=== PATIENT | female | born 1950 | race Caucasian/White ===

== ENCOUNTER → 2021-12-24 14:44 | Outpatient (BNVA) | payer MEDICARE, BC, SELFPAY | PROVIDERS: PCP Internal Medicine; Visit Provider Surgery Vascular Surgery | DX: I83.11 Varicose veins of right lower extremity with inflammation (principal) | CPT/HCPCS: 99212 ==

== ENCOUNTER 2022-02-04 10:31 | Outpatient (REF) | payer MEDICARE, BC, SELFPAY ==
--- NOTE | ~2022-02-04 | US_ITS ---
EXAMINATION: BILATERAL LOWER EXTREMITY VENOUS ULTRASOUND (REFLUX EXAM) CLINICAL INDICATION: Right lower extremity varicose veins. COMPARISON: None. TECHNIQUE: Color flow triplex imaging and compression Doppler was performed to evaluate both the deep and the superficial systems bilaterally. To evaluate the superficial system, the examination was performed in the upright position. Color-flow Doppler ultrasound and compression ultrasound were utilized. In addition, maneuvers were utilized to demonstrate reflux. FINDINGS: SUPERFICIAL ULTRASOUND WITH DOPPLER OF RIGHT LOWER EXTREMITY GREAT SAPHENOUS VEIN: Saphenofemoral junction: 4 mm Max diameter: 4 mm Min diameter: 2 mm Reflux: No evidence of reflux. DUPLICATED MEDIAL GREAT SAPHENOUS VEIN: Max Diameter: None Imaged Reflux: NA DUPLICATED LATERAL GREAT SAPHENOUS VEIN: Diameter: None Imaged Reflux: NA SMALL SAPHENOUS VEIN: Proximal Calf: 2 mm Distal Calf: 2 mm Reflux: No evidence of reflux. VEIN OF GIACOMINI: None Imaged. PERFORATORS: Location: Mid thigh measuring 3 mm. Reflux: None. VARICOSITIES: Location: None Imaged. Reflux: NA DEEP VENOUS ULTRASOUND OF THE RIGHT LOWER EXTREMITY: Common Femoral Vein: Compressible, normal respiratory variation and augmented flow. Femoral vein: Compressible, normal color flow and augmentation. Popliteal Vein: Compressible, normal augmentation. Deep Reflux: There is no evidence of reflux in the deep system in either the common femoral vein or the popliteal vein. Melvin's Cyst: There is no evidence of a Melvin's cyst. SUPERFICIAL ULTRASOUND WITH DOPPLER OF LEFT LOWER EXTREMITY GREAT SAPHENOUS VEIN: Saphenofemoral junction: 7 mm Max diameter: 7 mm Min diameter: 2 mm Reflux: There is reflux at the saphenofemoral junction and proximal thigh up to 1.6 seconds. DUPLICATED MEDIAL GREAT SAPHENOUS VEIN: Max Diameter: None Imaged. Reflux: NA DUPLICATED LATERAL GREAT SAPHENOUS VEIN: Diameter: 4 mm at the saphenofemoral junction. Reflux: No evidence of reflux. SMALL SAPHENOUS VEIN: Proximal Calf: 2 mm Distal Calf: 2 mm Reflux: There is greater than 3 seconds of reflux within the proximal calf. VEIN OF GIACOMINI: None Imaged. PERFORATORS: Location: Mid thigh and proximal calf measuring 2 mm each. Reflux: None. VARICOSITIES: Location: Distal calf measuring 2 mm. Reflux: None. DEEP VENOUS ULTRASOUND OF THE LEFT LOWER EXTREMITY: Common Femoral Vein: Compressible, normal respiratory variation and augmented flow. Femoral vein: Compressible, normal color flow and augmentation. Popliteal Vein: Compressible, normal augmentation. Deep Reflux: There is no evidence of reflux in the deep system in either the common femoral vein or the popliteal vein. Melvin's Cyst: There is no evidence of a Melvin's cyst. US/US venous duplex LE BI IMPRESSION: 1. No evidence of right great saphenous venous insufficiency. 2. Left great saphenous venous insufficiency beginning at the junction/proximal thigh. 3. Left small saphenous venous insufficiency beginning at the proximal calf. 4. No evidence of DVT or deep venous insufficiency.
== END 2022-02-04 10:32 | disposition home or self-care (01) ==
LOC: HO.US 10:31
PROVIDERS: PCP Internal Medicine; Visit Provider Surgery Vascular Surgery
DX: I83.11 Varicose veins of right lower extremity with inflammation (principal)
CPT/HCPCS: 93970

== ENCOUNTER → 2022-02-11 12:53 | Outpatient (BNVA) | payer MEDICARE, BC, SELFPAY | PROVIDERS: PCP Internal Medicine; Visit Provider Surgery Vascular Surgery | DX: I83.11 Varicose veins of right lower extremity with inflammation (principal) | CPT/HCPCS: 99212 ==

== ENCOUNTER 2022-02-26 14:22 | Outpatient (REF) | payer MEDICARE, BC, SELFPAY ==
--- NOTE | ~2022-02-26 | US_ITS ---
EXAMINATION: US EXTRACRANIAL CAROTID DUPLEX, BILATERAL CLINICAL INFORMATION: Bilateral carotid bruit COMPARISON: None TECHNIQUE: Real-time ultrasound and Doppler techniques (integrating B-mode 2-D vascular images, Doppler spectral analysis and color-flow Doppler imaging) were utilized to interrogate the extracranial carotid arteries, the vertebral arteries and proximal subclavian arteries bilaterally. The degree of stenosis is determined by criteria similar to NASCET. FINDINGS: Right Side: 1. There is mild atherosclerotic plaque seen in the bifurcation/proximal ICA region. 2. The common carotid artery PSV proximally is 96 cm/s and distally 63 cm/s. 3. The proximal internal carotid artery velocities are 58 cm/s systolic and 16 cm/s diastolic. 4. The proximal external carotid artery PSV is 96 cm/s. 5. The vertebral artery shows antegrade flow. 6. The subclavian artery waveforms are normal. Left Side: 1. There is mild atherosclerotic plaque seen in the bifurcation/proximal ICA region. 2. The common carotid artery PSV proximally is 77 cm/s and distally 98 cm/s. 3. The proximal internal carotid artery velocities are 95 cm/s systolic and 15 cm/s diastolic. 4. The proximal external carotid artery PSV is 93 cm/s. 5. The vertebral artery shows antegrade flow. 6. The subclavian artery waveforms are normal. US/US carotid duplex BI IMPRESSION: 1. RIGHT: Minimal, non-hemodynamically significant stenosis of the proximal right internal carotid artery corresponding to a 0-49% stenosis by velocity criteria. 2. LEFT: Minimal, non-hemodynamically significant stenosis of the proximal left internal carotid artery corresponding to a 0-49% stenosis by velocity criteria.
== END 2022-02-26 14:23 | disposition home or self-care (01) ==
LOC: HO.US 14:22
PROVIDERS: PCP Internal Medicine; Visit Provider Internal Medicine
DX: R09.89 Other specified symptoms and signs involving the circulatory and respiratory systems (principal)
CPT/HCPCS: 93880

== ENCOUNTER 2022-03-26 15:00 | Outpatient (RCR) | payer MEDICARE, BC, SELFPAY ==
[2022-03-21 08:04] VITALS: BP 154/82; PULSE 74
--- NOTE | 2022-03-21 10:20 | MHC.PT.EP ---
[facility] [place] Office [place] Office [place] Office [address] Jay Dhillon [address] [phone] F: [phone] F: [phone] F: [phone] F: [phone] Physical Therapy Plan of Care Date of Evaluation: Date of Surgery: Diagnosis: neck pain Assessment: 71 y/o F referred to PT with neck pain. She sustained a fall 02/13/22 resulting in open laceration back of head and LOC. She does not know why she fell, but states she might have tripped over a stair in her house. She remembers waking up on the kitchen floor maybe 5-10minutes after falling backwards and had her daughter call 911. She was taken to [facility] by ambulance. She had cervical x-rays and CT scan of brain and head - per patient all imaging was normal, nothing broken. States she had a concussion and it was recommended to rest, avoid television, and overstimulation by MD. Her concussion sx included blurry vision and dizziness, which she states lasted 7-10 days and have now resolved. She had mery removed a few weeks ago. Denies nausea, vomiting, MOHAN, and dizziness/vision has resolved. Now she reports residual neck pain and feels limited with rotating neck when driving, looking up after being on the computer, changing positions in bed. She later mentions dizziness with looking down. Examination shows decreased cervical AROM, decreased shoulder/scapular strength, (+) smooth pursuits resulting in dizziness, (+) saccades, ?VOR (neck pain and guarded), (-) VBI/alar ligament/sharp cuauhtemoc/transverse ligament, impiared balance with eyes closed conditions with posterior COM and LOB, increased tissue tension and pain. S/s consistent with neck pain associated with whiplash and concussion. Recommend PT 2x/week for 8 weeks to address impairments, implement HEP, and optimize functional mobility. POC to include cervical/scapular STM/MFR, shoulder strengthening, facet joint mobilization, concussion training to include saccades/smooth pursuit/ VOR/balance training, posture and modalities as needed. Frequency and Duration: The patient will be seen 2x/week for 8 weeks Short Term Goals: 4 weeks 1 I with HEP 2 Pt will have negative smooth pursuit tests with no dizziness 3. Pt will improve cervical rotation by 10 degrees to faciliate driving Prison Goals: 8 weeks 1. I with HEP and self management of sx 2. 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 Pt will improve cervical AROM by 10 degrees with pain < 3/10 to faciliate functional movement Treatment Plan: Modalities to reduce pain, spasms and effusion. Manual therapy to restore motion and function. Therapeutic exercise to improve strength and flexibility. Neuromuscular re-education for posture and balance. Therapeutic activities to return to functional activities of daily living. Electronically signed by: Ramona Lozoya PT Please sign and return to therapist. Thank you for your referral.
--- NOTE | 2022-05-09 07:10 | MHC.PT.DC ---
[facility] [place] Office [place] Office [place] Office [address] Jay Dhillon [address] [phone] F: [phone] F: [phone] F: [phone] F: [phone] Physical Therapy Discharge Report Diagnosis: neck pain Date of Surgery: Date of Evaluation: 03/21/22 Date of Discharge: 05/09/22 Treatments to Date: 2 Cancellations to Date: 0 No Shows to Date: 0 Discharge Status: Patient Elected to Stop Recommend MD Follow-up Discharge Summary: Pt called to put herself on hold following increased dizziness. She also f/u with her neurologist who also placed her on hold. Pt then did not f/u with further visits after 30-day hold and will d/c chart at this time. Electronically signed by: Ramona Lozoya PT Please sign and return to therapist. Thank you for your referral.
== END 2022-05-09 07:11 | disposition home or self-care (01) ==
LOC: HO.PTCHIC 15:00
PROVIDERS: PCP Internal Medicine; Visit Provider Internal Medicine
DX: M54.2 Cervicalgia (principal)
CPT/HCPCS: 97110; 97112; 97140; 97162

== ENCOUNTER 2022-07-14 08:21 | Outpatient (REF) | payer MEDICARE, BC, SELFPAY ==
[2022-07-14 11:29] LABS: MANUAL DIFF FLAG NO
[2022-07-14 11:44] LABS: Basophils Percent Auto 0.3 % (0-2); Eosinophils Absolute Auto 0.1 X10*3/uL (0.0-0.4); Eosinophils Percent Auto 1.3 % (0-4); Hematocrit 39.7 % (37.0-47.0); Hemoglobin 12.9 g/dl (12.0-16.0); Imm Gran Abs Auto 0.02 X10*3/uL (0.00-0.03); Imm Gran Pct Auto 0.3 % (0.0-0.4); Lymphocytes Absolute Auto 1.9 X10*3/uL (1.2-4.9); Lymphocytes Percent Auto 26.2 % (20-40); Mean Corpuscular HGB Conc 32.5 g/dl (31.0-35.0); Mean Corpuscular Hemoglobin 28.9 pg (27.0-33.0); Mean Corpuscular Volume 88.8 fL (80.0-98.0); Mean Platelet Volume 10.4 fL (9.4-12.3); Monocytes Absolute Auto 0.6 X10*3/uL (0.1-1.2); Monocytes Percent Auto 7.4 % (2-11); Neutrophils Absolute Auto 4.8 x10*3/uL (2.0-8.3); Neutrophils Percent Auto 64.5 % (45-73); Platelet Count 229 X10*3/uL (160-400); Red Blood Count 4.47 X10*6/uL (4.20-5.50); Red Cell Distribution Width 13.4 % (11.0-16.0); White Blood Count 7.4 X10*3/uL (4.8-10.8)
[2022-07-14 11:50] LABS: Appearance Urine Hazy; Color Urine Yellow; Glucose Urine UA Negative (Negative); Leukocyte Esterase Urine Negative (Negative); Nitrite Urine Positive (Negative); Specific Gravity - Urine 1.015 (1.005-1.025); UMIC TRIGGER UACC YES; Urine Blood Negative (Negative); Urine Ketones Negative (Negative); Urine Protein Negative (Neg-Trace)
[2022-07-14 12:02] LABS: Bacteria Urine 4+ (None Seen); UACC Culture Trigger YES; WBC Urine 0-5 /HPF (0-5)
[2022-07-14 12:03] LABS: Hyaline Casts Urine 0-2 /LPF (0-2); RBC Urine 0-2 /HPF (0-2)
[2022-07-14 12:30] LABS: Alanine Aminotransferase 17 U/L (0-31); Albumin Level 4.3 g/dL (3.5-5.0); Alkaline Phosphatase 86 U/L (39-117); Anion Gap 15 (12-20); Aspartate Amino Transferase 15 U/L (5-31); Bilirubin Total 0.3 mg/dL (0.0-1.0); Blood Urea Nitrogen 18 mg/dL (9-16); C Reactive Protein 0.14 mg/dL (< or = 0.50); Calcium 9.3 mg/dL (8.4-10.2); Carbon Dioxide 26 mmol/L (22-29); Chloride 103 mmol/L (96-108); Cholesterol 168 mg/dL; Estimated Glomerular Filt Rate > 60; Glucose Fasting 115 mg/dL (60-99); HDL Cholesterol 42 mg/dL; LDL Cholesterol Calculated 86 mg/dl; Sodium 140 mmol/L (135-145); Total Protein 6.8 g/dL (6.5-8.0); Triglycerides 204 mg/dL
[2022-07-14 12:47] LABS: Creatinine Urine 98.72 mg/dL; Microalbum/Creatinine Ratio Ur 11.1 ug/mg cr
== END 2022-07-14 08:22 | disposition home or self-care (01) ==
LOC: HO.HMGCLDS 08:21
PROVIDERS: PCP Internal Medicine; Visit Provider Internal Medicine
DX: E11.9 Type 2 diabetes mellitus without complications (principal); E78.5 Hyperlipidemia, unspecified; I10 Essential (primary) hypertension; R30.0 Dysuria
CPT/HCPCS: 36415; 80053; 80061; 81001; 82043; 85025; 86140; 87086; 87088; 87186

== ENCOUNTER → 2022-07-15 09:58 | Outpatient (BNVA) | payer MEDICARE, BC, SELFPAY | PROVIDERS: PCP Internal Medicine; Visit Provider Dietitian, Registered | DX: E11.9 Type 2 diabetes mellitus without complications (principal) | CPT/HCPCS: 97802 ==

== ENCOUNTER 2022-07-23 09:21 | Outpatient (REF) | payer MEDICARE, BC, SELFPAY ==
--- NOTE | ~2022-07-23 | MR_ITS ---
MR BRAIN WITHOUT AND WITH CONTRAST CLINICAL INFORMATION: History of meningioma with 3 weeks of double vision. COMPARISON: Brain MRI 09/05/2021. TECHNIQUE: Multiplanar, multisequence MRI of the brain was obtained before and after the intravenous administration of 9 mL of Gadavist. FINDINGS: There is a stable appearing densely calcified meningioma at the high right convexity that continues to measure up to 1.8 cm in size. There is no adjacent parenchymal edema. There is mild chronic microangiopathy. There is no hydrocephalus, extra-axial surface collection, or herniation. The major flow voids at the skull base are preserved. There is no acute infarct on diffusion-weighted imaging. There is no intracranial hemorrhage on the gradient recalled echo acquisition. The midline structures are normal. The cerebellar tonsils are normally positioned. The cerebellum and brainstem are normal. The craniocervical junction is normal. Osseous marrow signal intensity is homogenous. The visualized soft tissues are unremarkable. MR/MR head/brain wo/w con IMPRESSION: - There is a stable appearing densely calcified meningioma at the high right convexity that continues to measure up to 1.8 cm in size. There is no adjacent parenchymal edema. No additional pathologic enhancement intracranially. - No acute infarcts. There is mild chronic microangiopathy.
== END 2022-07-23 09:22 | disposition home or self-care (01) ==
LOC: HO.MRI 09:21
PROVIDERS: Visit Provider Internal Medicine
DX: R29.818 Other symptoms and signs involving the nervous system (principal); D32.9 Benign neoplasm of meninges, unspecified
CPT/HCPCS: 70553; A9585

== ENCOUNTER 2023-01-29 08:49 | Outpatient (REF) | payer MEDICARE, BC, SELFPAY ==
[2023-01-29 15:29] LABS: Influenza A PCR NEGATIVE (Negative); Influenza B PCR NEGATIVE (Negative); Resp Syncy Virus RNA Qual PCR NEGATIVE (Negative); SARS COV2 PCR INHOUSE NEGATIVE (Negative)
== END 2023-01-29 08:50 | disposition home or self-care (01) ==
LOC: HO.LAB 08:49
PROVIDERS: Visit Provider Nurse Practitioner Family
DX: Z20.822 Contact with and (suspected) exposure to COVID-19 (principal); R09.89 Other specified symptoms and signs involving the circulatory and respiratory systems
CPT/HCPCS: 0241U

== ENCOUNTER 2023-02-03 10:28 | Outpatient (REF) | payer MEDICARE, BC, SELFPAY ==
[2023-02-03 11:14] LABS: MANUAL DIFF FLAG NO
[2023-02-03 11:40] LABS: Basophils Percent Auto 0.3 % (0-2); Eosinophils Absolute Auto 0.1 X10*3/uL (0.0-0.4); Eosinophils Percent Auto 1.9 % (0-4); Hematocrit 39.6 % (37.0-47.0); Hemoglobin 12.8 g/dl (12.0-16.0); Imm Gran Abs Auto 0.02 X10*3/uL (0.00-0.03); Imm Gran Pct Auto 0.3 % (0.0-0.4); Lymphocytes Absolute Auto 1.8 X10*3/uL (1.2-4.9); Lymphocytes Percent Auto 25.7 % (20-40); Mean Corpuscular HGB Conc 32.3 g/dl (31.0-35.0); Mean Corpuscular Hemoglobin 28.7 pg (27.0-33.0); Mean Corpuscular Volume 88.8 fL (80.0-98.0); Mean Platelet Volume 9.9 fL (9.4-12.3); Monocytes Absolute Auto 0.4 X10*3/uL (0.1-1.2); Monocytes Percent Auto 5.8 % (2-11); Neutrophils Absolute Auto 4.6 x10*3/uL (2.0-8.3); Platelet Count 239 X10*3/uL (160-400); Red Blood Count 4.46 X10*6/uL (4.20-5.50); Red Cell Distribution Width 13.1 % (11.0-16.0); White Blood Count 6.9 X10*3/uL (4.8-10.8)
[2023-02-03 12:29] LABS: Alanine Aminotransferase 17 U/L (0-31); Albumin Level 3.9 g/dL (3.5-5.0); Alkaline Phosphatase 81 U/L (39-117); Anion Gap 13 (12-20); Aspartate Amino Transferase 18 U/L (5-31); Bilirubin Total 0.4 mg/dL (0.0-1.0); Blood Urea Nitrogen 16 mg/dL (9-16); Calcium 9.5 mg/dL (8.4-10.2); Carbon Dioxide 27 mmol/L (22-29); Chloride 107 mmol/L (96-108); Cholesterol 153 mg/dL; Estimated Glomerular Filt Rate > 60; Glucose Fasting 99 mg/dL (60-99); HDL Cholesterol 29 mg/dL; LDL Cholesterol Calculated 82 mg/dl; Potassium 4.2 mmol/L (3.3-5.1); Sodium 143 mmol/L (135-145); Total Protein 6.4 g/dL (6.5-8.0); Triglycerides 210 mg/dL
[2023-02-03 12:35] LABS: TSH reflex Free T4 1.09 uIU/mL (0.32-4.0)
== END 2023-02-03 10:29 | disposition home or self-care (01) ==
LOC: HO.HMGCLDS 10:28
PROVIDERS: PCP Internal Medicine; Visit Provider Internal Medicine
DX: E11.9 Type 2 diabetes mellitus without complications (principal); I10 Essential (primary) hypertension; E78.5 Hyperlipidemia, unspecified
CPT/HCPCS: 36415; 80053; 80061; 84443; 85025

== ENCOUNTER 2023-06-22 08:01 | Outpatient (AMB) | payer MEDICARE, BC, SELFPAY ==
[2023-06-22 08:02] VITALS: BP 132/80; PULSE 74; TEMP 36.6; O2SAT 97; BMI 34.9
--- NOTE | 2023-06-22 08:02 | AM.OFFWIN_ITS ---
Intake Vital Signs 06/22/23 08:02 Height 5 ft 2 in Weight 191 lb BMI 34.9 BP 132/80 Blood Pressure Location Lt brachial Position Sitting Pulse 74 Pulse Source Pulse Oximeter Temp 97.8 F Temp Source Temporal Artery Scan Pulse Oximetry (%) 97 Oxygen Delivery Method Room Air Intake Visit Reasons: EP LT leg numbness Intake Note: pt is here for c/o left leg numbness Patient Tobacco Use Status: Never used Tobacco Allergies aspirin Allergy (Unknown, Verified 06/22/23 08:02) Nose Bleed Do you need a note to return to daycare/school/sports/work: Yes HPI EP LT leg numbness HPI Details 72-year-old [facility]. Patient is reporting of pain and numbness in the left knee for the past week. Does not recall any fall or injury. A few years ago she was diagnosed with loose bodies in the left knee. She has history of arthritis in the left knee. History of diabetes 2. [facility] Medical History Benign brain tumor Bilateral carotid bruits DM type 2 (diabetes mellitus, type 2) HTN (hypertension) Hyperlipidemia Mammogram declined Vascular insufficiency of extremity Surgical History H/O left knee surgery H/O: hysterectomy History of appendectomy History of cholecystectomy Hx of colonoscopy Family History Father Atrial fibrillation Heart attack Mother Angioimmunoblastic lymphoma Sister Hairy cell leukemia Social History Household Members Other:: , 1 son Housing: House Patient Tobacco Use Status: Never used Tobacco e-Cigarette/Vaping Use: Never Used service: No Current occupational status: retired Cognitive needs: No Hearing needs: No Vision needs: Yes Physical Exam Vital Signs: Last Vital Signs Temp 97.8 F 06/22/23 08:02 Pulse 74 06/22/23 08:02 BP 132/80 06/22/23 08:02 Pulse Ox 97 06/22/23 08:02 Oxygen Delivery Method Room Air 06/22/23 08:02 BMI result Body Mass Index 34.9 Const General: cooperative and healthy appearing Nutritional Appearance: well nourished Orientation/consciousness: patient oriented x3 Limitations: no limitations HEENT Head: Yes normal to inspection Eyes General: appearance normal, both eyes and all related structures Neck Neck: Yes normal visual inspection Chest Chest palpation & inspection: normal palpation of entire chest wall Resp Effort & Inspection: normal respiratory effort Neuro General: patient oriented x3 Extrem Other: Left knee: No joint line tenderness. Pain on flexion of the knee. Full range of motion with minimal discomfort. Assessment & Plan Assessment & Plan (1) Sprain of left knee: Code(s): S83.92XA - Sprain of unspecified site of left knee, initial encounter Plan: X-ray images were personally reviewed by me. Osteoarthritis changes noted. Patient was advised rest, splint and keeping the foot elevated. She did not want to use the splint offered from here. Meloxicam called in. Coding Level of Care Code Est Pt Level 4 (06772) Diagnoses Sprain of left knee S83.92XA
== END 2023-06-22 09:16 | disposition home or self-care (01) ==
PROVIDERS: PCP Internal Medicine; Visit Provider Internal Medicine
DX: S83.92XA Sprain of unspecified site of left knee, initial encounter (principal)
CPT/HCPCS: 99214

== ENCOUNTER 2023-06-22 08:20 | Outpatient (REF) | payer MEDICARE, BC, SELFPAY ==
--- NOTE | ~2023-06-22 | XR_ITS ---
EXAMINATION: XR KNEE, LEFT CLINICAL INFORMATION: Sprain of the left knee. COMPARISON: None available. TECHNIQUE: Four views of the left knee. FINDINGS: Bones have normal alignment. No acute fracture or subluxation. There is a trace amount of fluid in the suprapatellar compartment of the knee joint. Tricompartmental osteophyte formation is present. There is slight narrowing of the medial aspect of the medial tibiofemoral joint space with subarticular sclerosis. There is scattered atherosclerotic calcification of peripheral vessels. XR/XR knee LT 4V IMPRESSION: * No acute abnormality. No fracture or malalignment at the left knee. * Osteoarthritis of the left knee is mild at the patellofemoral and lateral tibiofemoral compartments and [id number] at the medial tibiofemoral compartment.
== END 2023-06-22 08:21 | disposition home or self-care (01) ==
LOC: HO.HMGCX 08:20
PROVIDERS: PCP Internal Medicine; Visit Provider Internal Medicine
DX: S83.92XA Sprain of unspecified site of left knee, initial encounter (principal); X58.XXXA Exposure to other specified factors, initial encounter; Y93.9 Activity, unspecified; Y92.9 Unspecified place or not applicable; Y99.9 Unspecified external cause status
CPT/HCPCS: 73564

== ENCOUNTER 2023-07-03 12:30 | Outpatient (AMB) | payer MEDICARE, BC, SELFPAY ==
[2023-07-03 12:34] VITALS: BP 124/70; PULSE 75; O2SAT 97; BMI 34.2
--- NOTE | 2023-07-03 12:34 | A.OFFPC_ITS ---
Vital Signs 07/03/23 12:34 Height 5 ft 2 in Weight 187 lb BMI 34.2 BP 124/70 Blood Pressure Location Lt brachial Position Sitting Pulse 75 Pulse Source Pulse Oximeter Pulse Oximetry (%) 97 Oxygen Delivery Method Room Air Intake Visit Reasons: ongoing hip pain Intake Note: Pt is here today for a follow up visit on ongoing L hip and whole leg pain. Pt states that she was seen in a walk in and [facility] for this. Allergies aspirin Allergy (Unknown, Verified 07/03/23 12:36) Nose Bleed Medication List - Last Reconciled 07/03/23 by Debra Ugalde MD aspirin (Adult Low Dose Aspirin) 81 mg PO DAILY dicyclomine 10 mg PO QID dulaglutide (Trulicity) 3 mg (0.5 mL) subcut QWEEK duloxetine 20 mg PO BID flash glucose scanning reader (Diagonal View Cyn 2 Beals) As directed flash glucose sensor (InfermedicaStyle Cyn 14 Day Sensor kit) As directed insulin aspart U-100 (Novolog FlexPen U-100 Insulin aspart) 5 units before breakfast, 10 units before dinner each day subcutaneously use as directed; insulin glargine (Basaglar KwikPen U-100 Insulin) 30 subcut .pm; lamotrigine 50 mg PO BID levocetirizine (24HR Allergy Relief) 5 mg PO DAILY 30 days meloxicam 15 mg PO DAILY metformin ER 1,000 mg PO BID metoprolol succinate ER 25 mg PO DAILY polyethylene glycol 3350 (Miralax) 17 grams PO BID rosuvastatin 10 mg PO .3 times weekly triamterene-hydrochlorothiazid 37.5-25 mg 1 tab PO DAILY Tobacco use date assessed: 07/03/23 Fall risk assessment: No Falls in past year Last assessed Fall Risk: 07/03/23 Dental Screening Dental Screen Date: 07/03/23 Did you have a dental visit in the last 12 months?: Yes Did you have a dental problem in the last 6 months where you did not have access to dental care?: No Was dental information given to patient?: Patient has dentist HPI ongoing hip pain HPI Details Pt presents for f/u TYPE 2 DIABETES HYPERLIPIDEMIA AND HYPERTENSION CONTROLLED ON CURRENT MEDICATIONS. Patient complains of chronic left knee and left leg pain worse when walking but also at night. She had left knee meniscus surgery 2 years ago by [facility] but reports persistent pain. She follows up with orthopedics at [facility] and had a cortisone injection without sustained relief [facility] Medical History Bilateral carotid bruits Vascular insufficiency of extremity Benign brain tumor Mammogram declined HTN (hypertension) Hyperlipidemia DM type 2 (diabetes mellitus, type 2) Surgical History Hx of colonoscopy History of cholecystectomy History of appendectomy H/O: hysterectomy H/O left knee surgery Family History Father Atrial fibrillation Heart attack Mother Angioimmunoblastic lymphoma Sister Hairy cell leukemia Social History Household Members Other:: , 1 son Housing: House Patient Tobacco Use Status: Never used Tobacco e-Cigarette/Vaping Use: Never Used service: No Current occupational status: retired Cognitive needs: No Hearing needs: No Vision needs: Yes Questionnaire Thrive Questionnaire Date Thrive assessed: 02/03/23 RHEA-7 AMB Questionnaire RHEA-7 Date RHEA - 7 assessed: 02/03/23 Source: Developed by Drs. Renny Hansen, Cathleen Malone, Dami Kovacs and colleagues, with an educational chad from [employer]. Review of Systems Const All systems reviewed & are unremarkable except as noted in HPI and below Reports no additional complaints Eyes Reports no additional complaints ENT Reports no additional complaints Card Reports no additional complaints Resp Reports no additional complaints GI Reports no additional complaints Reports no additional complaints Musc Reports no additional complaints Physical exam (Primary Care) Vital Signs: Last Vital Signs Pulse 75 07/03/23 12:34 BP 124/70 07/03/23 12:34 Pulse Ox 97 07/03/23 12:34 Oxygen Delivery Method Room Air 07/03/23 12:34 BMI result Body Mass Index 34.2 Tobacco/Smoking Status: Tobacco use Status Tobacco use date assessed 07/03/23 07/03/23 12:39 Patient Tobacco Use Status Never used Tobacco 07/03/23 12:39 e-Cigarette/Vaping Use Never Used 07/03/23 12:39 Thrive Assessment: Date of Thrive Assessment Date Thrive assessed 02/03/23 07/03/23 12:39 Const General: no acute distress HENMT Head: Yes normal to inspection Face and sinus: Yes normal facial exam Mouth: Normal oral and palatal mucosa present Neck Neck: Yes supple Resp Effort & Inspection: normal respiratory effort Auscultation: clear to auscultation bilaterally Cardio Rhythm: regular rhythm Heart sounds: S1 normal heart sound present and S2 normal heart sound present GI Inspection: Yes normal to inspection Palpation (GI): Soft to palpation Percussion: Yes normal to percussion Auscultation: normal bowel sounds Extrem Other: There is decreased range of motion the left knee, medial aspect tenderness, no soft tissue swelling erythema or warmth General: Yes no clubbing, cyanosis or edema Assessment and Plan Assessment & Plan (1) Postmenopausal: Code(s): Z78.0 - Asymptomatic menopausal state Plan: check DEXA (2) DM type 2 (diabetes mellitus, type 2): Comment: f/u [facility] q 3 months, prescribe and manage her medications Code(s): E11.9 - Type 2 diabetes mellitus without complications Plan: ADA diet regular physical activity discussed with the patient. Continue current medications on follow-up with endocrinology (3) Hyperlipidemia: Comment: Cannot tolerate daily Crestor, takes only 3 times a week Code(s): E78.5 - Hyperlipidemia, unspecified Plan: Continue statin (4) HTN (hypertension): Code(s): I10 - Essential (primary) hypertension Plan: Continue current medications (5) Left knee pain: Comment: s/p meniscus surgery 2020, f/U [facility], XR mild-mod OA 04/22 Code(s): M25.562 - Pain in left knee Plan: f/u with ortho Orders: Orders Comprehensive [place]. Panel Fast 6 Months E11.9 - Type 2 diabetes mellitus without complications, E78.5 - Hyperlipidemia, unspecified, I10 - Essential (primary) hypertension Complete Blood Count Auto Diff 6 Months E11.9 - Type 2 diabetes mellitus without complications, E78.5 - Hyperlipidemia, unspecified, I10 - Essential (primary) hypertension Hemoglobin A1c 6 Months E11.9 - Type 2 diabetes mellitus without complications, E78.5 - Hyperlipidemia, unspecified, I10 - Essential (primary) hypertension Vitamin D 25-OH Total 6 Months E11.9 - Type 2 diabetes mellitus without complications, E78.5 - Hyperlipidemia, unspecified, I10 - Essential (primary) hypertension XR DEXA axial skeleton 6 Months E11.9 - Type 2 diabetes mellitus without complications, E78.5 - Hyperlipidemia, unspecified, I10 - Essential (primary) hypertension, Z78.0 - Asymptomatic menopausal state Lipid Panel 6 Months E11.9 - Type 2 diabetes mellitus without complications, E78.5 - Hyperlipidemia, unspecified, I10 - Essential (primary) hypertension Microalbumin, Random (w Creat) 6 Months E11.9 - Type 2 diabetes mellitus without complications, E78.5 - Hyperlipidemia, unspecified, I10 - Essential (primary) hypertension Coding Level of Care Code Est Pt Level 4 (55652) Diagnoses Postmenopausal Z78.0 DM type 2 (diabetes mellitus, type 2) E11.9 Hyperlipidemia E78.5 HTN (hypertension) I10 Left knee pain M25.562
== END 2023-07-03 14:34 | disposition home or self-care (01) ==
PROVIDERS: PCP Internal Medicine; Visit Provider Internal Medicine
DX: Z78.0 Asymptomatic menopausal state (principal); E11.9 Type 2 diabetes mellitus without complications; E78.5 Hyperlipidemia, unspecified; I10 Essential (primary) hypertension; M25.562 Pain in left knee
CPT/HCPCS: 99214

== ENCOUNTER 2024-02-04 08:42 | Outpatient (REF) | payer MEDICARE, BC, SELFPAY ==
[2024-02-04 10:22] LABS: MANUAL DIFF FLAG NO
[2024-02-04 10:38] LABS: Basophils Percent Auto 0.6 % (0-2); Eosinophils Absolute Auto 0.1 X10*3/uL (0.0-0.4); Eosinophils Percent Auto 1.5 % (0-4); Hematocrit 39.8 % (37.0-47.0); Imm Gran Abs Auto 0.03 X10*3/uL (0.00-0.03); Imm Gran Pct Auto 0.5 % (0.0-0.4); Lymphocytes Absolute Auto 1.6 X10*3/uL (1.2-4.9); Mean Corpuscular HGB Conc 32.7 g/dl (31.0-35.0); Mean Corpuscular Hemoglobin 28.5 pg (27.0-33.0); Mean Corpuscular Volume 87.3 fL (80.0-98.0); Mean Platelet Volume 10.3 fL (9.4-12.3); Monocytes Absolute Auto 0.6 X10*3/uL (0.1-1.2); Monocytes Percent Auto 8.4 % (2-11); Neutrophils Absolute Auto 4.3 x10*3/uL (2.0-8.3); Platelet Count 233 X10*3/uL (160-400); Red Blood Count 4.56 X10*6/uL (4.20-5.50); Red Cell Distribution Width 13.8 % (11.0-16.0); White Blood Count 6.6 X10*3/uL (4.8-10.8)
[2024-02-04 10:57] LABS: Estimated Average Glucose 151 mg/dL; Hemoglobin A1c % 6.9 % (<6.0)
[2024-02-04 11:12] LABS: Alanine Aminotransferase 12 U/L (0-31); Albumin Level 4.1 g/dL (3.5-5.0); Alkaline Phosphatase 94 U/L (39-117); Anion Gap 13 (12-20); Aspartate Amino Transferase 13 U/L (5-31); Bilirubin Total 0.4 mg/dL (0.0-1.0); Blood Urea Nitrogen 26 mg/dL (9-16); Calcium 9.9 mg/dL (8.4-10.2); Carbon Dioxide 26 mmol/L (22-29); Chloride 106 mmol/L (96-108); Cholesterol 254 mg/dL (<200); Estimated Glomerular Filt Rate > 60; Glucose Fasting 144 mg/dL (60-99); HDL Cholesterol 44 mg/dL (>40); LDL Cholesterol Calculated 180 mg/dL (<100); Potassium 4.3 mmol/L (3.3-5.1); Sodium 141 mmol/L (135-145); Total Protein 6.9 g/dL (6.5-8.0); Triglycerides 153 mg/dL (<150); Vitamin D 25-OH Total 33.4 ng/mL (>30)
[2024-02-04 11:19] LABS: Creatinine Urine 136.21 mg/dL; Microalbum/Creatinine Ratio Ur 12.4 ug/mg cr (<30)
== END 2024-02-04 08:43 | disposition home or self-care (01) ==
LOC: HO.HMGCLDS 08:42
PROVIDERS: PCP Internal Medicine; Visit Provider Internal Medicine
DX: E11.9 Type 2 diabetes mellitus without complications (principal); E78.5 Hyperlipidemia, unspecified; I10 Essential (primary) hypertension
CPT/HCPCS: 36415; 80053; 80061; 82043; 82306; 82570; 83036; 85025

== ENCOUNTER 2024-02-25 11:55 | Outpatient (AMB) | payer MEDICARE, BC, SELFPAY ==
[2024-02-25 12:09] VITALS: BP 125/78; PULSE 67; O2SAT 95; BMI 35.0
--- NOTE | 2024-02-25 12:09 | A.OFFPC_ITS ---
Vital Signs 02/25/24 12:09 Height 5 ft 2 in Weight 191 lb 8 oz BMI 35.0 BP 125/78 Blood Pressure Location Rt brachial Position Standing Pulse 67 Pulse Source Pulse Oximeter Pulse Oximetry (%) 95 Oxygen Delivery Method Room Air Intake Visit Reasons: PE shania from 02/23/24 Allergies aspirin Allergy (Unknown, Verified 02/25/24 12:09) Nose Bleed Medication List - Last Reconciled 02/25/24 by Debra Ugalde MD aspirin (Adult Low Dose Aspirin) 81 mg PO DAILY dicyclomine 10 mg PO QID dulaglutide (Trulicity) 3 mg (0.5 mL) subcut QWEEK duloxetine 20 mg PO BID flash glucose scanning reader ([employer]Style Cyn 2 [place]) As directed flash glucose sensor (FreeStyle Cyn 14 Day Sensor kit) As directed insulin aspart U-100 (Novolog FlexPen U-100 Insulin aspart) 5 units before breakfast, 10 units before dinner each day subcutaneously use as directed; insulin glargine (Basaglar KwikPen U-100 Insulin) 30 subcut .pm; lamotrigine 50 mg PO BID levocetirizine (24HR Allergy Relief) 5 mg PO DAILY 30 days meloxicam 15 mg PO DAILY metformin ER 1,000 mg PO BID metoprolol succinate ER 25 mg PO DAILY [id number]-[id number]-AB 3.5-10,000-1 mg/mL-unit/mL-% otic (ears) polyethylene glycol 3350 (Miralax) 17 grams PO BID rosuvastatin 10 mg PO .3 times weekly triamterene-hydrochlorothiazid 37.5-25 mg 1 tab PO DAILY Tobacco use date assessed: 02/25/24 Fall risk assessment: No Falls in past year Last assessed Fall Risk: 02/25/24 Dental Screening Dental Screen Date: 02/25/24 Did you have a dental visit in the last 12 months?: No Did you have a dental problem in the last 6 months where you did not have access to dental care?: No Was dental information given to patient?: No HPI PE shania from 02/23/24 HPI Details Pt presents for PE. She complains of persistent left knee pain since her replacement surgery in August by Dr. Koo at [facility]. She completed physical therapy. Patient reports chronic neck pain and stiffness for 1 month and tried muscle relaxers without relief. PFSH Medical History Bilateral carotid bruits Vascular insufficiency of extremity Benign brain tumor Mammogram declined HTN (hypertension) Hyperlipidemia DM type 2 (diabetes mellitus, type 2) Surgical History Hx of colonoscopy History of cholecystectomy History of appendectomy H/O: hysterectomy H/O left knee surgery Family History Father Atrial fibrillation Heart attack Mother Angioimmunoblastic lymphoma Sister Hairy cell leukemia Social History Household Members Other:: , 1 son Housing: House Patient Tobacco Use Status: Never used Tobacco e-Cigarette/Vaping Use: Never Used service: No Current occupational status: retired Cognitive needs: No Hearing needs: No Vision needs: Yes Questionnaire Thrive Questionnaire Date Thrive assessed: 02/03/23 AUDIT C Alcohol Use Questionnaire (AUDIT-C) 1. How often do you have a drink containing alcohol?: Never 3. How often do you have six or more drinks on one occasion?: Never Total Score: 0 Score Reviewed/Action Taken: Yes RHEA-7 AMB Questionnaire RHEA-7 Date RHEA - 7 assessed: 02/03/23 Source: Developed by Drs. Renny Hansen, Cathleen Malone, Dami Kovacs and colleagues, with an educational chad from [employer]. Review of Systems Const All systems reviewed & are unremarkable except as noted in HPI and below Reports no additional complaints Eyes Reports no additional complaints ENT Reports no additional complaints Card Reports no additional complaints Resp Reports no additional complaints GI Reports no additional complaints Musc Reports no additional complaints Physical exam (Primary Care) Vital Signs: Last Vital Signs Pulse 67 02/25/24 12:09 Pulse Ox 95 02/25/24 12:09 Oxygen Delivery Method Room Air 02/25/24 12:09 BMI result Body Mass Index 35.0 Tobacco/Smoking Status: Tobacco use Status Tobacco use date assessed 02/25/24 02/25/24 12:09 Patient Tobacco Use Status Never used Tobacco 02/25/24 12:09 e-Cigarette/Vaping Use Never Used 02/25/24 12:09 Thrive Assessment: Date of Thrive Assessment Date Thrive assessed 02/03/23 02/25/24 12:09 Const General: no acute distress HENMT Head: Yes normal to inspection Ears: hearing grossly normal bilaterally Eyes General: appearance normal, both eyes and all related structures Neck Neck: Yes supple Thyroid: diffusely enlarged Resp Effort & Inspection: normal respiratory effort Auscultation: clear to auscultation bilaterally Cardio Rhythm: regular rhythm Heart sounds: S1 normal heart sound present and S2 normal heart sound present GI Inspection: Yes normal to inspection Palpation (GI): Soft to palpation Percussion: Yes normal to percussion Auscultation: normal bowel sounds Back/Spine/Pelvis Other: Paraspinal tenderness in the lower cervical region left more than right and decreased range of motion C-spine Assessment and Plan Assessment & Plan (1) DM type 2 (diabetes mellitus, type 2): Comment: f/u [facility] endo q 3 months, prescribe and manage her medications Code(s): E11.9 - Type 2 diabetes mellitus without complications Plan: A1c is 6.9, continue current treatment ADA diet patient follows up with [facility] endocrinology every 6 months (2) Hyperlipidemia: Comment: Cannot tolerate daily Crestor, takes only 3 times a week Code(s): E78.5 - Hyperlipidemia, unspecified Plan: Restart Crestor 3 times a week and check lipid profile in 2 months (3) HTN (hypertension): Code(s): I10 - Essential (primary) hypertension Plan: Continue current medications (4) Goiter: Comment: History of thyroid biopsy Code(s): E04.9 - Nontoxic goiter, unspecified Plan: Obtain thyroid ultrasound (5) Meningioma: Comment: f/u with neurology Code(s): D32.9 - Benign neoplasm of meninges, unspecified Plan: Follow-up with Neurology (6) Annual physical exam: Code(s): Z00.00 - Encounter for general adult medical examination without abnormal findings Plan: Well-balanced diet regular physical activity discussed with the patient for chronic neck pain patient will be referred to PT Orders: Orders Lipid Panel 2 Months E11.9 - Type 2 diabetes mellitus without complications, E78.5 - Hyperlipidemia, unspecified, I10 - Essential (primary) hypertension Comprehensive [place]. Panel Fast 1 Year E11.9 - Type 2 diabetes mellitus without complications, E78.5 - Hyperlipidemia, unspecified, I10 - Essential (primary) hypertension Hemoglobin A1c 1 Year E11.9 - Type 2 diabetes mellitus without complications, E78.5 - Hyperlipidemia, unspecified, I10 - Essential (primary) hypertension Complete Blood Count Auto Diff 1 Year E11.9 - Type 2 diabetes mellitus without complications, E78.5 - Hyperlipidemia, unspecified, I10 - Essential (primary) hypertension US thyroid Today E04.9 - Nontoxic goiter, unspecified Lipid Panel 1 Year E11.9 - Type 2 diabetes mellitus without complications, E78.5 - Hyperlipidemia, unspecified, I10 - Essential (primary) hypertension Microalbumin, Random (w Creat) 1 Year E11.9 - Type 2 diabetes mellitus without complications, E78.5 - Hyperlipidemia, unspecified, I10 - Essential (primary) hypertension TSH reflex Free T4 1 Year E11.9 - Type 2 diabetes mellitus without complication s, E78.5 - Hyperlipidemia, unspecified, I10 - Essential (primary) hypertension Coding Level of Care Code Est Pt Prev Care >65y(75508) Diagnoses DM type 2 (diabetes mellitus, type 2) E11.9 Hyperlipidemia E78.5 HTN (hypertension) I10 Goiter E04.9 Meningioma D32.9 Annual physical exam Z00.00
== END 2024-02-25 13:13 | disposition home or self-care (01) ==
LOC: HO.HMGC 11:55
PROVIDERS: PCP Internal Medicine; Visit Provider Internal Medicine
DX: Z00.00 Encounter for general adult medical examination without abnormal findings (principal); E11.69 Type 2 diabetes mellitus with other specified complication; D32.9 Benign neoplasm of meninges, unspecified; E78.5 Hyperlipidemia, unspecified; I10 Essential (primary) hypertension; E04.9 Nontoxic goiter, unspecified
CPT/HCPCS: 99397

== ENCOUNTER 2024-03-04 08:57 | Outpatient (REF) | payer MEDICARE, BC, SELFPAY ==
--- NOTE | ~2024-03-04 | US_ITS ---
EXAMINATION: US THYROID CLINICAL INFORMATION: Nontoxic goiter, unspecified. COMPARISON: None available. TECHNIQUE: Linear transducer grayscale and color Doppler examination with attention to the region of the thyroid. FINDINGS: SIZE: Measurements of the thyroid lobes and nodules are given in sagittal, anteroposterior and transverse dimensions respectively. Right Thyroid Lobe: 5.0 x 2.2 x 2.1 cm, volume 12.1 mL. Parenchyma: The gland echotexture is heterogeneous. Thyroid vascularity is normal. Left Thyroid Lobe: 6.4 x 2.5 x 2.0 cm, volume 16.8 mL. Parenchyma: The gland echotexture is heterogeneous. Thyroid vascularity is normal. Isthmus: 0.3 cm in maximum AP dimension. Estimated total number of nodules greater than or equal to 1 cm: 4. Lead Infrastructure Architect nodules are described as follows: 1. Location: Right mid. Size: 1.5 x 1.1 x 1.3 cm, volume 1.12 mL. Nodule characteristics: Composition: Solid/almost completely solid (2). Echogenicity: Cannot be determined (1). Shape: Not taller than wide (0). Margins: Ill-defined (0). Echogenic Foci: Macrocalcifications (1). Punctate echogenic foci (3). ACR TI-RADS total points: 7 ACR TI-RADS category: 5 2. Location: Right inferior medial. Size: 1.6 x 0.7 x 1.1 cm, volume 0.62 mL. Nodule characteristics: Composition: Solid/almost completely solid (2). Echogenicity: Hypoechoic (2). Shape: Not taller than wide (0). Margins: Smooth (0). Echogenic Foci: Punctate echogenic foci (3). ACR TI-RADS total points: 7 ACR TI-RADS category: 5 3. Location: Left inferior. Size: 2.3 x 2.1 x 2.0 cm, volume 4.95 mL. Nodule characteristics: Composition: Solid (2). Echogenicity: Hypoechoic (2). Shape: Not taller than wide (0). Margins: Ill-defined (0). Echogenic Foci: None (0). ACR TI-RADS total points: 4 ACR TI-RADS category: 4 4. Location: Left inferior. Size: 2.3 x 1.6 x 1.9 cm, volume 3.74 mL. Nodule characteristics: Composition: Solid (2). Echogenicity: Hypoechoic (2). Shape: Not taller than wide (0). Margins: Extrathyroidal extension (3). Echogenic Foci: Macrocalcifications (1). ACR TI-RADS total points: 8 ACR TI-RADS category: 5 5. Location: Left mid. Size: 0.7 x 0.6 x 0.7 cm, volume 0.17 mL. Nodule characteristics: Composition: Cystic(0). ACR TI-RADS total points: 0 ACR TI-RADS category: 1 NODES: No lymphadenopathy is seen in the tissue surrounding the thyroid gland. US/US thyroid IMPRESSION: Multinodular thyroid gland. 1.5 cm right mid TR5 nodule, 1.6 cm right inferior medial TR5 nodule, 2.3 cm left inferior TR4 nodule, and 2.3 cm left inferior TR5 nodule meet criteria for biopsy. Fine-needle aspiration of at least the 2 largest of these nodules is recommended. This study was presented to de February for interpretation. PSA staff will provide results to referring provider at this time. ACR TI-RADS RECOMMENDATION REFERENCE: Ultrasound-guided fine-needle aspiration, followup ultrasound, no further follow up. * TR1 (0 point) and TR2 (2 points): No FNA or follow up. * TR3 (3 points): FNA if more than or equal to 2.5 cm in maximum dimension, followup ultrasound in 1, 3 and 5 years if 1.5 to 2.4 cm in maximum dimension. * TR4 (4-6 points): FNA if more than or equal to 1.5 cm in maximum dimension, followup ultrasound in 1, 2, 3 and 5 years if 1 to 1.4 cm in maximum dimension. * TR5 (more than or equal to 7 points): FNA if more than or equal to 1 cm in maximum dimension, followup ultrasound every year for 5 years if 0.5 to 0.9 cm in maximum dimension. * TR3, TR4 or TR5 nodules that are below the size threshold for followup receive no follow up.
== END 2024-03-04 08:58 | disposition home or self-care (01) ==
LOC: HO.HMGCX 08:57
PROVIDERS: PCP Internal Medicine; Visit Provider Internal Medicine
DX: E04.9 Nontoxic goiter, unspecified (principal)
CPT/HCPCS: 76536

== ENCOUNTER 2024-03-31 11:58 | Outpatient (REF) | payer MEDICARE, BC, SELFPAY ==
[2024-03-31 13:59] LABS: TSH reflex Free T4 1.06 uIU/mL (0.32-4.0)
== END 2024-03-31 11:59 | disposition home or self-care (01) ==
LOC: HO.HMGCLDS 11:58
PROVIDERS: PCP Internal Medicine; Visit Provider Internal Medicine
DX: E04.9 Nontoxic goiter, unspecified (principal)
CPT/HCPCS: 36415; 84443